=== PATIENT | female | born 1940 | race Caucasian/White ===

== ENCOUNTER → 2016-08-01 | Outpatient (CLI) | payer MEDICARE, BC | LOC: LAB 08:23 | DX: C50.412 Malignant neoplasm of upper-outer quadrant of left female breast (principal) ==

== ENCOUNTER → 2017-02-06 | Outpatient (CLI) | payer MEDICARE, BC | LOC: LAB 08:57 | DX: C50.412 Malignant neoplasm of upper-outer quadrant of left female breast (principal) ==

== ENCOUNTER → 2017-08-14 | Outpatient (CLI) | payer MEDICARE, BC ==
[2017-08-14 09:49] LABS: ALBUMIN 3.7 g/dL (3.5-5.0); BUN/CREATININE RATIO 29.8 (6.0-26.0); CALCIUM 9.5 mg/dL (8.4-10.2); POTASSIUM 4.9 mmol/L (3.6-5.0); TOTAL BILIRUBIN 0.8 mg/dL (0.2-1.3); TOTAL PROTEIN 7.2 g/dL (6.3-8.2)
== END ==
LOC: LAB 09:24
PROVIDERS: Internal Medicine Medical Oncology
DX: C50.919 Malignant neoplasm of unspecified site of unspecified female breast (principal)

== ENCOUNTER → 2018-02-15 | Outpatient (CLI) | payer MEDICARE, BC ==
[2018-02-15 11:06] LABS: ALBUMIN 3.5 g/dL (3.5-5.0); CALCIUM 8.9 mg/dL (8.4-10.2); POTASSIUM 4.6 mmol/L (3.6-5.0); TOTAL BILIRUBIN 1.2 mg/dL (0.2-1.3); TOTAL PROTEIN 6.6 g/dL (6.3-8.2)
== END ==
LOC: LAB 10:19
PROVIDERS: Internal Medicine Medical Oncology
DX: C50.919 Malignant neoplasm of unspecified site of unspecified female breast (principal)

== ENCOUNTER → 2018-08-16 | Outpatient (CLI) | payer MEDICARE, BC ==
[2018-08-16 14:14] LABS: POTASSIUM 4.7 mmol/L (3.6-5.0); TOTAL BILIRUBIN 1.3 mg/dL (0.2-1.3); TOTAL PROTEIN 7.2 g/dL (6.3-8.2)
[2018-08-16 15:41] LABS: CALCIUM 9.7 mg/dL (8.4-10.2)
== END ==
LOC: LAB 09:31
PROVIDERS: Internal Medicine Medical Oncology
DX: C50.412 Malignant neoplasm of upper-outer quadrant of left female breast (principal)

== ENCOUNTER → 2023-11-24 | Outpatient (CLI) | payer MEDICARE, BC | LOC: RAD 08:15 | DX: N18.31 Chronic kidney disease, stage 3a (principal) ==